=== PATIENT | female | born 1950 | race Two or more races ===

== ENCOUNTER 2019-06-12 10:17 | Emergency (ER) | payer OTHER ==
[~2019-06-12] VITALS: Ht 162.6 cm; Wt 64.4 kg
[~2019-06-12 10:17] MED LIST: CATAFLAM50 MG PO; INTESTINEX1 CA1 PO; LYRICA100 MG PO; PROTONIX40 MG PO
[2019-06-12] MEDS ORDERED: PROBIOTIC1 EAC2 (10:41)
[2019-06-12] MEDS ORDERED: DAIRY DIGES9000 UNIT (10:41)
[2019-06-12] MEDS ORDERED: GAS RELIEF125 M1 (10:41)
[2019-06-12] MEDS ORDERED: GLIMEPIRIDE2 MG (10:42)
[2019-06-12] MEDS ORDERED: ALTACE1.25 MG (10:42)
== END 2019-06-12 17:44 | disposition home or self-care (01) ==
LOC: ER 10:17
DX: K59.09 Other constipation (principal); K29.60 Other gastritis without bleeding; R10.84 Generalized abdominal pain